=== PATIENT | female | born 1995 | race Caucasian/White ===

== ENCOUNTER 2022-06-14 19:38 | Emergency (ER) | payer OTHER, SELFPAY ==
--- NOTE | 2022-06-14 19:45 | HMH.EDUTC ---
[facility] Disposition Clinical Impression: Impetigo Disposition: Home, Self-Care Condition on Discharge: Good Instructions: Impetigo, DI for Impetigo Additional Instructions: Take tylenol for pain if needed Take the medications as directed. Follow up with your regular doctor. GO TO THE ER FOR ANY WORSENING SYMPTOMS Prescriptions: cephALEXin [cephALEXin 500mg capsule] 500 mg PO Q6H 10 Days #40 cap Transmission Status: Received by [id number] Referrals: Lydia Valentin MD [Primary Care Provider] - Forms: Work/School Release Time of Disposition: 20:03 Medical Decision Making - Medical Records Medical records reviewed: No: I reviewed the patient's medical records. - Tim Inquiry Pt receiving controlled substance: No Vital Signs: 06/14/22 19:55 06/14/22 20:04 Temperature 98.4 F 98.4 F Temperature Source Oral Pulse Rate 71 Pulse Rate [Left] 71 Respiratory Rate 16 16 Blood Pressure 158/100 H Blood Pressure [Right Arm] 158/100 H Blood Pressure Mean [Right Arm] 119 02 Sat by Pulse Oximetry 99 [facility] HPI - General Stated complaint: POSS RASH ON BACK OF HEAD Time Seen by Provider: 06/14/22 20:00 - History of Present Illness Provider Complaint: She states that she has a large scabbed area on the back of her head. She states that she gets nervous and picks at her scalp. but now she believes this area is gettng infected. - Related Data Previous Rx's Medication Instructions Recorded cephALEXin [cephALEXin 500mg 500 mg PO Q6H 10 Days #40 cap 06/14/22 capsule] [facility] History - Hepatitis A Screen Attestation statement:: This patient has been screened for Hepatitis A risk factors. I have reviewed the patient's past medical history: Yes ROS Obtained: Yes All systems reviewed & no additional complaints - Constitutional Constitutional: Denies chills, Denies fever(s) - Eyes Eyes: Denies eye discharge - ENT Ears, Nose, Mouth, and Throat: Denies sore throat - Cardiovascular Cardiovascular: Denies chest pain - Respiratory Respiratory: Denies chest congestion, Denies cough - Gastrointestinal Gastrointestingal: Denies: abdominal pain, nausea, vomiting Physical Exam - General General appearance: alert, in no apparent distress - Head Head exam: atraumatic, normocephalic, normal inspection - Eye Eye exam: Present: normal appearance, PERRL, EOMI - ENT ENT exam: Present: normal exam, normal oropharynx, mucous membranes moist, TM's normal bilaterally, normal external ear exam - Neck Neck exam: Present: normal inspection, full ROM, trachea midline. Absent: meningismus, lymphadenopathy - Chest Chest inspection: Present: normal inspection, symmetric chest wall rise. Absent: tenderness - Respiratory Respiratory exam: Present: normal lung sounds bilaterally. Absent: respiratory distress - Cardiovascular Cardiovascular exam: Present: regular rate, normal rhythm. Absent: JVD - Abdominal Exam Abdominal exam: Present: soft, normal bowel sounds. Absent: distention, tenderness, guarding - Extremities Exam Extremities exam: Present: normal inspection, full ROM, normal capillary refill. Absent: calf tenderness - Back Exam Back exam: Present: normal inspection. Absent: tenderness - Neurological Exam Neurological exam: Present: alert, oriented X3 - Psychiatric Psychiatric exam: Present: normal affect, normal mood - Skin Skin exam: Present: other (there is a crusted lesion her scalp on the back of her head that measures 3 cm diameter. no drainage, no swelling. ) - Lymphatic Lymphatic Findings: no adenopathy
[2022-06-14 19:55] VITALS: BP 158/100; PULSE 71; RESP 16; TEMP 36.9; O2SAT 99; BMI 27.2
[2022-06-14 20:04] VITALS: BP 158/100; PULSE 71; RESP 16; TEMP 36.9
== END 2022-06-14 20:06 | disposition home or self-care (01) ==
PROVIDERS: Emergency Provider Nurse Practitioner Family; PCP Family Medicine
DX: R21 Rash and other nonspecific skin eruption (principal)
CPT/HCPCS: 99213; G0463

== ENCOUNTER 2022-10-03 11:22 | Emergency (ER) | payer OTHER, SELFPAY ==
[2022-10-03 13:25] VITALS: BP 140/86; PULSE 75; RESP 18; TEMP 36.9; O2SAT 98; BMI 29.0
--- NOTE | 2022-10-03 13:37 | EXP.UTC ---
Discharge Plan Disposition Patient Disposition: Home, Self-Care Condition: Good Prescriptions Prescriptions: New azithromycin [Zithromax Z-Jonathan] 250 mg tablet See Rx Instructions .ROUTE .COMPLEX 5 Days Qty: 6 0RF Rx Instructions: For 250 mg dose pack: take 500 mg today (day 1), then 250 mg for 4 days (days 2-5) methylprednisolone [Medrol (Jonathan)] 4 mg tablets,dose pack See Rx Instructions .Route .COMPLEX 6 Days Qty: 21 0RF Rx Instructions: taper pack; guaifenesin [Mucinex] 600 mg tablet extended release 12hr 600 mg PO BID PRN (Reason: cough) Qty: 20 0RF Referrals Follow up/Referrals: Lydia Valentin MD [Primary Care Provider] - See instructions Activity Restrictions/Add. Instructions Additional Instructions/Restrictions: Start antibiotic today. Be sure to complete entire prescription even if feeling better Monitor temp. Tylenol every 4 hours as needed and / or ibuprofen every 6 hours as needed ( As long as your primary care physician has told you that it ok to take both. For fever/aches/pains ER if no less than 101 despite Tylenol or Motrin Humidifier/vaporizer or hot steamy shower Mucinex for your cough and chest congestion. Be sure to drink lots of water. *Start steroid today. Helps with inflammation therefore, cough and wheezing. Follow directions on the package. Reviewed side effects. Patient reports taking them before. Follow up IMMEDIATELY for new or worsening of symptoms OR no noticeable improvement over the next 48-72 hours. 911 immediately for any life threatening symptoms such as chest pain or difficulty breathing Clinical Impressions Clinical Impression: Bronchitis Instructions Patient Instructions: Cough, Guaifenesin Discharge ED Provider: Donita Carter [place] HPI General Stated complaint: Chills, nausea, clammy, bodyaches, fatigue Mode of Arrival: Ambulatory Source of Information: Patient Limitations: No Limitations Time Seen by Provider: 10/03/22 13:37 Description of Symptoms (Recalled from Triage Doc. by RN): PATIENT C/O COUGH AND CONGESTION X 1 WEEK HEENT Symptoms (Recalled from RN notes): No Resp Symptoms (Recalled from RN notes): Yes Skin Symptoms (Recalled from RN notes): No MS Symptoms (Recalled from RN notes): No Functional Status (Recalled from RN notes): WNL History of Present Illness Provider Complaint: Patient states that she started out a couple weeks ago with sinus congestion and now it has moved down into her chest area States that she has been having chest congestion and cough for about a week States that she hasnt had fever that she is aware of but today when she woke up she felt a little rattly in her chest so she came in Related Data Previous Rx's Medication Instructions Recorded azithromycin 250 mg tablet See Rx Instructions PO .COMPLEX 5 10/03/22 (Zithromax Z-Jonathan) days #6 tabs guaifenesin 600 mg tablet, 600 mg PO BID PRN cough #20 tabs 10/03/22 extended release 12 hr (Mucinex) methylprednisolone 4 mg tablets in See Rx Instructions .Route 10/03/22 a dose pack (Medrol (Jonathan)) .COMPLEX 6 days #21 tabs Allergies Allergy/AdvReac Type Severity Reaction Status Date / Time No Known Allergies Allergy Verified 10/03/22 13:36 Worker's Comp Is this a Worker's Comp case?: [facility]: The information contained in this section may have been updated after the patient was seen, as this information can be updated by other users. Medical History (Updated 10/03/22 @ 13:41 by Donita Carter APRN) Anxiety Depression Urinary tract infection Social History (Updated 10/03/22 @ 13:36 by Ella Granados RN) Smoking Status: Unknown if ever smoked alcohol intake: never current occupational status: other Travel in the last 8 weeks: None ROS Obtained: Yes All systems reviewed & no additional complaints except as documented and Yes Systems reviewed as appropriate & n
[2022-10-03 14:02] VITALS: BP 140/86; PULSE 75; RESP 18; TEMP 36.9; O2SAT 98
== END 2022-10-03 14:07 | disposition home or self-care (01) ==
PROVIDERS: Emergency Provider Nurse Practitioner; PCP Family Medicine
DX: J40 Bronchitis, not specified as acute or chronic (principal)
CPT/HCPCS: 99212